=== PATIENT | female | born 1995 | race American Indian/Alaskan Native ===

== ENCOUNTER 2017-10-31 09:39 | Outpatient (CLI) | payer BC ==
--- NOTE | 2017-10-31 12:13 | Mammography Report ---
Bilateral mammogram and bilateral breast ultrasound: Palpable right breast mass. A marker is placed over the area of concern and routine mammography performed. There is a heterogeneously dense area of increased tissue density behind the right areola near the marker which is located above the nipple. No discrete mass identified. There does appear to be focal mild retraction of skin near the marker. The left breast is mostly fatty replaced however there is an elongated circumscribed nodule in the central breast measuring approximately 2.4 cm. Right breast ultrasound in the area of the palpable mass in the 10:00 location near the areola demonstrates an irregular shaped hypoechoic and shadowing mass measuring approximately 2 cm. Adjacent to this mass is a group of serpiginous appearing echolucent disease that may represent dilated ducts. Images of the right axilla demonstrates a 14 mm nonsuspicious appearing lymph node. In the left breast at 11:00 location approximately 7 cm from the nipple there is a circumscribed homogeneously hypoechoic nodule measuring 8.4 mm. No other findings. CAD used. Impressions: 1. Suspicious right breast mass. 2. Low suspicion right axillary lymph node. 3. 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 Recommendation: 1. Right breast biopsy with consideration of axillary node biopsy. 2. Consider left breast biopsy. 6 month mammographic followup also an option. BI-RADS CATEGORY: 5 = Malignant ACR BI-RADS MAMMOGRAPHIC CODES: 0 = Needs additional imaging evaluation; 1 = Negative; 2 = Benign; 3 = Probably benign; 4 = Suspicious; 5 = Malignant; 6 = Known biopsy-proven malignancy COMMENT: 1. Dense breast tissue, i.e., adenosis, fibrocystic changes, etc., may obscure an underlying neoplasm. 2. Approximately 10% of cancers are not detected with mammography. 3. A negative mammography report should not delay biopsy if a clinically suspicious mass is present.
== END 2017-10-31 09:40 | disposition home or self-care (01) ==
LOC: SPVWC 09:39
PROVIDERS: ATTEND Surgery
DX: N63.20 Unspecified lump in the left breast, unspecified quadrant (principal); N63.10 Unspecified lump in the right breast, unspecified quadrant; R92.8 Other abnormal and inconclusive findings on diagnostic imaging of breast
CPT/HCPCS: 77066

== ENCOUNTER 2017-11-16 08:36 | Outpatient (CLI) | payer BC ==
--- NOTE | 2017-11-16 11:13 | Ultrasound Report ---
VACUUM ASSISTED ULTRASOUND GUIDED NEEDLE CORE BIOPSY WITH CLIP PLACEMENT RIGHT BREAST: 11/16/17 08:36:00 CLINICAL: Right breast mass. COMPARISON :10/31/17 FINDINGS: The procedure was explained to the patient and informed consent was obtained. Ultrasound demonstrated marked a retro-areolar duct ectasia and a somewhat ill-defined retroareolar mass at 10 o'clock. A mass is more distinct in the antiradial plane and measures 1.0 x 1.0 cm in the antiradial plane and approximately 1.4 cm in the radial plane. The skin was prepped with Betadine and anesthetized with 1% lidocaine. Vacuum-assisted needle core biopsy was performed through a small dermatotomy using ultrasound guidance, 2% lidocaine with epinephrine for deep anesthesia and a 10-gauge Mammotome Elite biopsy probe. Multiple cores were obtained and placed in formalin. A hydro-heath clip was deployed within the lesion. Hemostasis was achieved with minimal pressure and a sterile dressing was applied. The patient tolerated the procedure well and there were no apparent complications. I scanned the right axilla and did not find a suspicious lymph node to biopsy. A two view mammogram demonstrated concordant clip placement at the margin of a retroareolar spiculated mass measuring approximately 1.9 cm. The patient left the department in good condition with instructions for wound care and follow up. IMPRESSION: uncomplicated vacuum-assisted ultrasound core biopsy and clip placement right breast.
--- NOTE | 2017-11-16 11:15 | Mammography Report ---
RIGHT DIGITAL DIAGNOSTIC MAMMOGRAM: 11/16/17 08:36:00 CLINICAL: For clip placement immediately status post ultrasound biopsy. COMPARISON:10/31/17 FINDINGS: A biopsy clip is now identified at the margin of a spiculated 1.9 cm retroareolar mass. IMPRESSION: Concordant clip placement status post ultrasound biopsy. BI-RADS CATEGORY: 5 - - Highly Suggestive of Malignancy Pathology pending.
== END 2017-11-16 08:37 | disposition home or self-care (01) ==
LOC: SPVWC 08:36
PROVIDERS: ATTEND Surgery
DX: N63.10 Unspecified lump in the right breast, unspecified quadrant (principal)
CPT/HCPCS: 88305; 88342

== ENCOUNTER 2018-06-30 02:39 | Emergency (ER) | payer BC ==
[2018-06-30 03:02] VITALS: BP 145/91
[2018-06-30] MEDS ORDERED: MOTRIN PO ONE (04:43)
--- NOTE | 2018-06-30 05:23 | XRay Report ---
FINAL REPORT PROCEDURE: XR ANKLE 2V RT TECHNIQUE: RIGHT ankle radiographs, AP and lateral views. HISTORY: right ankle pain COMPARISON: No prior studies are available for comparison. FINDINGS: Fracture (s) and/or Dislocation(s): None. Alignment: Normal. Joint space(s): Normal. Soft tissues: There is generalized soft tissue swelling. Bone mineralization: Normal. Foreign bodies: Normal. Calcaneal spurring: Normal. IMPRESSION: There is no acute bony abnormality. There is generalized soft tissue swelling..
--- NOTE | 2018-06-30 06:29 | Emergency Department Report ---
ED Lower Extremity HPI - General Chief Complaint: Extremity Injury, Lower Stated Complaint: ANKLE INJURY Time Seen by Provider: 06/30/18 06:23 Source: patient Mode of arrival: Ambulatory Limitations: No Limitations - History of Present Illness Initial Comments: 29-year-old obese female comes to the emergency room stating she twisted her right ankle about 1700 on Sunday evening. She reports that she was walking up an incline when her foot rolled inward. Patient denies falling. She denies any deformities reports that is painful to walk she reports that is throbbing with pain. She reports most of the pain is on the lateral aspect of the ankle. She has no past medical history currently takes no medications and has no known drug allergies. MD Complaint: ankle injury -: days(s) Time: 17:00 Injury: Ankle: Right (rolled ankle inward when she walked up an small incline) Type of Injury: inversion Place: street/outdoors Severity scale (0 -10): 10 Improves With: NSAID Context: walking Associated Symptoms: tingling, unable to bear weight - Related Data Previous Rx's Medication Instructions Recorded Last Taken Type Ibuprofen [Motrin 800 MG tab] 800 mg PO Q8HR PRN #30 tablet 06/30/18 Unknown Rx Allergies Allergy/AdvReac Type Severity Reaction Status Date / Time No Known Allergies Allergy Unverified 06/30/18 04:43 ED Review of Systems ROS: Stated complaint: ANKLE INJURY Other details as noted in HPI Comment: All other systems reviewed and negative Musculoskeletal: joint swelling (right ankle), arthralgia (right ankle) ED Past Medical Hx - Past Medical History Additional medical history: Right Breast Mass - Surgical History Past Surgical History?: No - Social History Smoking Status: Current Every Day Smoker Substance Use Type: None - Medications Home Medications: Home Medications Medication Instructions Recorded Confirmed Last Taken Type Ibuprofen [Motrin 800 MG tab] 800 mg PO Q8HR PRN #30 tablet 06/30/18 Unknown Rx ED Physical Exam - General Limitations: No Limitations General appearance: alert, in no apparent distress, obese - Head Head exam: Present: atraumatic, normocephalic - Eye Eye exam: Present: EOMI - ENT ENT exam: Present: mucous membranes moist - Respiratory Respiratory exam: Present: normal lung sounds bilaterally. Absent: respiratory distress - Cardiovascular Cardiovascular Exam: Present: regular rate, normal rhythm. Absent: systolic murmur, diastolic murmur, rubs, gallop - Expanded Lower Extremity Exam Right Knee exam: Present: normal inspection, full ROM. Absent: tenderness, swelling Ankle exam: Present: full ROM, tenderness (lateral malleolus), swelling ( lateral and medial malleolus). Absent: ecchymosis, deformity, crepidus, dislocation Foot/Toe exam: Present: normal inspection. Absent: tenderness, swelling Neuro vascular tendon exam: Present: no vascular compromise - Neurological Exam Neurological exam: Present: alert, oriented X3 - Psychiatric Psychiatric exam: Present: normal affect, normal mood - Skin Skin exam: Present: warm, dry, intact, normal color. Absent: rash ED Course Vital Signs 06/30/18 03:00 Temperature 99.2 F Pulse Rate 107 H Respiratory 18 Rate Blood Pressure 145/91 O2 Sat by Pulse 91 Oximetry ED Lower Extremity MDM - Radiology Data Radiology results: report reviewed FINAL REPORT PROCEDURE: XR ANKLE 2V RT TECHNIQUE: RIGHT ankle radiographs, AP and lateral views. HISTORY: right ankle pain COMPARISON: No prior studies are available for comparison. FINDINGS: Fracture (s) and/or Dislocation(s): None. Alignment: Normal. Joint space(s): Normal. Soft tissues: There is generalized soft tissue swelling. Bone mineralization: Normal. Foreign bodies: Normal. Calcaneal spurring: Normal. IMPRESSION: There is no acute bony abnormality. There is generalized soft tissue swelling.. Transcribed By: CO Dictated By: KAYLA SHAFFER MD Electronically Authenticated By: KAYLA SHAFFER MD Signed Date/Time: 06/30/18521 DD/ 1 TD/TT: 06/30/18521 - Medical Decision Making Patient has been evaluated by this provider in fast track. Patient was given ibuprofen for pain management in triage. X-ray of right ankle shows normal examination with mild swelling. Discussed patient I will place her in a [place] bandage with a ankle stirrup discharge her home with ibuprofen encouraged her to use ice for 20 minutes on per hour for the first 12 hours. Critical care attestation.: If time is entered above; I have spent that time in minutes in the direct care of this critically ill patient, excluding procedure time. ED Disposition Clinical Impression: Obesity, morbid, BMI 50 or higher Inversion sprain of right ankle Qualifiers: Encounter type: initial encounter Qualified Code(s): S93.401A - Sprain of unspecified ligament of right ankle, initial encounter Disposition: TO HOME OR SELFCARE Is pt being admited?: No Does the pt Need Aspirin: No Condition: Stable Additional Instructions: Please take pain medication as prescribed. Please apply ice to her ankle. Please use stirrup and wear [place] bandage. Please follow-up with your primary care provider if symptoms persist or gets worse. Prescriptions: Ibuprofen [Motrin 800 MG tab] 800 mg PO Q8HR PRN #30 tablet PRN Reason: Pain , Severe (7-10) Referrals: PRIMARY CARE, [Primary Care Provider] - 3-5 Days Forms: Work/School Release Form(ED)
== END 2018-06-30 07:09 | disposition home or self-care (01) ==
LOC: ED 02:39
DX: S93.401A Sprain of unspecified ligament of right ankle, initial encounter (principal); E66.01 Morbid (severe) obesity due to excess calories; Z68.43 Body mass index [BMI] 50.0-59.9, adult; F17.200 Nicotine dependence, unspecified, uncomplicated; X50.1XXA Overexertion from prolonged static or awkward postures, initial encounter; Y93.01 Activity, walking, marching and hiking; Y99.8 Other external cause status; Y92.488 Other paved roadways as the place of occurrence of the external cause
CPT/HCPCS: 29540; 99283

== ENCOUNTER 2019-12-23 01:24 | Emergency (ER) | payer SELFPAY ==
[2019-12-23] MEDS ORDERED: HYDROcodone/ACETAMINOPHEN 5-325 MG TAB ONE (01:59)
--- NOTE | 2019-12-23 03:36 | Emergency Department Report ---
ED General Adult HPI - General Chief complaint: Burn/Smoke Inhalation Stated complaint: RT HAND BURN Source: patient Mode of arrival: Ambulatory Limitations: No Limitations - History of Present Illness Initial comments: Patient is a 24-year-old -[place] female who presented to the ED with complaint of severe bilateral hand pain after a hot grease poured on her right hand, right thumb and left index finger causing multiple blistered burn injuries about 4 hours ago. Patient states that she was preparing to thrive food when the hot grease spilled on her hands. Patient states that she is up-to-date with the tetanus vaccination having received 1 about 1 year ago. In patient denies numbness and tingling or weakness of bilateral hands, dizziness, nausea, vomiting, syncope, chest pain, shortness of breath or fall. MD Complaint: Bilateral hand and finger burn injury -: Sudden, hour(s) (4) Location: upper extremity (Bilateral hands) Radiation: non-radiation Severity scale (0 -10): 9 Quality: burning, aching Consistency: constant Improves with: none Worsens with: none Associated Symptoms: denies other symptoms. denies: confusion, chest pain, cough, diaphoresis, fever/chills, headaches, loss of appetite, malaise, nausea/vomiting, shortness of breath, syncope, weakness, other Treatments Prior to Arrival: none - Related Data Previous Rx's Medication Instructions Recorded Last Taken Type Acetaminophen/Codeine [Tylenol 1 tab PO Q6H PRN #12 tab 12/23/19 Unknown Rx /Codeine # 3 tab] Ibuprofen [Motrin 800 MG tab] 800 mg PO Q8HR PRN #30 tablet 12/23/19 Unknown Rx Mafenide Acetate [Sulfamylon] 56.7 gm TP Q12H #1 tube 12/23/19 Unknown Rx Allergies Allergy/AdvReac Type Severity Reaction Status Date / Time No Known Allergies Allergy Unverified 06/30/18 04:43 ED Review of Systems ROS: Stated complaint: RT HAND BURN Other details as noted in HPI Constitutional: denies: chills, fever Eyes: denies: eye pain, eye discharge, vision change ENT: denies: ear pain, throat pain Respiratory: denies: cough, shortness of breath, wheezing Cardiovascular: denies: chest pain, palpitations Endocrine: no symptoms reported Gastrointestinal: denies: abdominal pain, nausea, diarrhea Genitourinary: denies: urgency, dysuria, discharge Musculoskeletal: other (Bilateral hand pains due to burn injuries on right hand, right thumb, and left index finger). denies: back pain, joint swelling, arthralgia Skin: other (Burn wounds on right hand, right thumb and left index finger). denies: rash, lesions Neurological: denies: headache, weakness, paresthesias Psychiatric: denies: anxiety, depression Hematological/Lymphatic: denies: easy bleeding, easy bruising ED Past Medical Hx - Past Medical History Previous Medical History?: Yes Hx Psychiatric Treatment: Yes (anxiety) Additional medical history: Right Breast Mass - Surgical History Past Surgical History?: Yes Hx Breast Surgery: Yes (biopsy to right breast) - Social History Smoking Status: Current Every Day Smoker Substance Use Type: Marijuana - Medications Home Medications: Home Medications Medication Instructions Recorded Confirmed Last Taken Type Acetaminophen/Codeine [Tylenol 1 tab PO Q6H PRN #12 tab 12/23/19 Unknown Rx /Codeine # 3 tab] Ibuprofen [Motrin 800 MG tab] 800 mg PO Q8HR PRN #30 tablet 12/23/19 Unknown Rx Mafenide Acetate [Sulfamylon] 56.7 gm TP Q12H #1 tube 12/23/19 Unknown Rx ED Physical Exam - General Limitations: No Limitations General appearance: alert, in no apparent distress - Head Head exam: Present: atraumatic, normocephalic - Eye Eye exam: Present: normal appearance, PERRL, EOMI Pupils: Present: normal accommodation - ENT ENT exam: Present: normal exam, normal orophraynx, mucous membranes moist, TM's normal bilaterally, normal external ear exam - Neck Neck exam: Present: normal inspection, full ROM - Respiratory Respiratory exam: Present: normal lung sounds bilaterally. Absent: respiratory distress, wheezes, rales, rhonchi, chest wall tenderness, accessory muscle use, decreased breath sounds - Cardiovascular Cardiovascular Exam: Present: regular rate, normal rhythm, normal heart sounds. Absent: systolic murmur, diastolic murmur, rubs, gallop - GI/Abdominal GI/Abdominal exam: Present: soft, normal bowel sounds. Absent: tenderness, guarding, hyperactive bowel sounds, hypoactive bowel sounds, organomegaly - Extremities Exam Extremities exam: Present: normal inspection, full ROM, tenderness, normal capillary refill, other (Bilateral hand tenderness due to second-degree burn on right hand, right thumb and left index finger). Absent: pedal edema, joint swelling, calf tenderness - Back Exam Back exam: Present: normal inspection, full ROM. Absent: tenderness, CVA tenderness (R), CVA tenderness (L), muscle spasm, paraspinal tenderness - Neurological Exam Neurological exam: Present: alert, oriented X3, CN II-XII intact, normal gait, reflexes normal - Psychiatric Psychiatric exam: Present: normal affect, normal mood - Skin Skin exam: Present: warm, dry, intact, normal color, other (Second-degree burn wounds on right thumb, right hand and left thumb). Absent: rash ED Course Vital Signs 12/23/19 01:27 Temperature 97.2 F L Pulse Rate 90 Respiratory 18 Rate Blood Pressure 182/102 O2 Sat by Pulse 100 Oximetry ED Medical Decision Making - Medical Decision Making This is a 24-year-old -[place] female who presented to the ED with painful burn injuries on the right hand and fingers as well as mild burn wound on the left index finger after a hot grease spilled onto her right hand when she was trying to espitia some food. Patient stated that she is up-to-date with her tetanus vaccination. In the ED, patient is alert and oriented x3 and is not in distress. Patient was treated for pain in the ED and on reevaluation, patient's pain is well controlled with medications. The burn wounds were cleaned thoroughly and Silvadene cream applied topically to the wounds. The wounds were then appropriately dressed and the patient was discharged home on pain medications and more prescription for Silvadene cream. Patient was advised to follow-up with the burn center in 3 to 5 days for reevaluation or return to the ED immediately if symptoms get worse. - Differential Diagnosis Burn injury; Secind degree burn; blisters of hands Critical care attestation.: If time is entered above; I have spent that time in minutes in the direct care of this critically ill patient, excluding procedure time. ED Disposition Clinical Impression: Second degree burn of right hand and fingers Qualifiers: Encounter type: initial encounter Qualified Code(s): T23.201A - Burn of second degree of right hand, unspecified site, initial encounter; T23.231A - Burn of second degree of multiple right fingers (nail), not including thumb, initial encounter Second degree burn of left hand including fingers Qualifiers: Encounter type: initial encounter Qualified Code(s): T23.202A - Burn of second degree of left hand, unspecified site, initial encounter; T23.232A - Burn of second degree of multiple left fingers (nail), not including thumb, initial encounter Disposition: TO HOME OR SELFCARE Is pt being admited?: No Does the pt Need Aspirin: No Condition: Stable Instructions: Partial Thickness Burn (ED), Acute Wound Care (ED), Superficial Burn (ED) Additional Instructions: Take pain medication as needed with food, drink plenty of fluids and follow-up with your primary care physician in 5 to 7 days for reevaluation. Return to the ED immediately if symptoms get worse. Prescriptions: Ibuprofen [Motrin 800 MG tab] 800 mg PO Q8HR PRN #30 tablet PRN Reason: Pain , Severe (7-10) Mafenide Acetate [Sulfamylon] 56.7 gm TP Q12H #1 tube Acetaminophen/Codeine [Tylenol /Codeine # 3 tab] 1 tab PO Q6H PRN #12 tab PRN Reason: Pain , Severe (7-10) Referrals: [facility] [Outside] - 3-5 Days Forms: Work/School Release Form(ED) Time of Disposition: 03:31 Print Language: BERMUDIAN
[2019-12-23 03:45] VITALS: BP 123/86
== END 2019-12-23 03:45 | disposition home or self-care (01) ==
LOC: ED 01:24
DX: T23.201A Burn of second degree of right hand, unspecified site, initial encounter (principal); T23.202A Burn of second degree of left hand, unspecified site, initial encounter; F41.9 Anxiety disorder, unspecified; F17.200 Nicotine dependence, unspecified, uncomplicated; Z79.899 Other long term (current) drug therapy; Z98.890 Other specified postprocedural states; X08.8XXA Exposure to other specified smoke, fire and flames, initial encounter; Y93.G3 Activity, cooking and baking; Y92.89 Other specified places as the place of occurrence of the external cause; Y99.8 Other external cause status
CPT/HCPCS: 99282

== ENCOUNTER 2021-11-27 09:34 | Emergency (ER) | payer SELFPAY ==
[2021-11-27 09:49] VITALS: BP 123/93
--- NOTE | 2021-11-27 10:27 | Emergency Department Report ---
ED General Adult HPI - General Chief complaint: Abdominal Pain Stated complaint: VOMITTING/SORE THORAT Time Seen by Provider: 11/27/21 09:55 Source: patient Mode of arrival: Ambulatory Limitations: No Limitations - History of Present Illness Initial comments: 26 yo AA F pt presents with complaints of nausea, vomiting, and and lower abdominal pain x 3 days. States vomiting only occurs in the morning. She also reports a fever of 102 orally around 7 pm yesterday. Took tylenol and fever resolved. LMP was 10/02/21. She denies any urinary symptoms, vaginal bleeding, or dyspareunia. States she currently has a yeast infection and has not taken any OTC meds. Pt denies any PMHx. No prior pregnancies. Not currently following with PCP. -: Sudden Severity scale (0 -10): 7 - Related Data Previous Rx's Medication Instructions Recorded Last Taken Type Acetaminophen/Codeine [Tylenol 1 tab PO Q6H PRN #12 tab 12/23/19 Unknown Rx /Codeine # 3 tab] Ibuprofen [Motrin 800 MG tab] 800 mg PO Q8HR PRN #30 tablet 12/23/19 Unknown Rx Mafenide Acetate [Sulfamylon] 56.7 gm TP Q12H #1 tube 12/23/19 Unknown Rx Allergies Allergy/AdvReac Type Severity Reaction Status Date / Time christopher Allergy Itching Verified 11/27/21 09:43 ED Review of Systems ROS: Stated complaint: VOMITTING/SORE THORAT Other details as noted in HPI Constitutional: denies: chills, fever, malaise ENT: denies: throat pain Respiratory: denies: cough Gastrointestinal: abdominal pain, nausea, vomiting. denies: diarrhea, constipation Genitourinary: discharge (chunkywhite). denies: urgency, dysuria, frequency, hematuria, abnormal menses, dyspareunia Musculoskeletal: denies: back pain Skin: denies: change in color Neurological: denies: headache Hematological/Lymphatic: denies: easy bleeding ED Past Medical Hx - Past Medical History Previous Medical History?: Yes Hx Psychiatric Treatment: Yes (anxiety) Additional medical history: Right Breast Mass - Surgical History Past Surgical History?: Yes Hx Breast Surgery: Yes (biopsy to right breast) - Social History Smoking Status: Current Every Day Smoker Substance Use Type: Marijuana - Medications Home Medications: Home Medications Medication Instructions Recorded Confirmed Last Taken Type Acetaminophen/Codeine [Tylenol 1 tab PO Q6H PRN #12 tab 12/23/19 Unknown Rx /Codeine # 3 tab] Ibuprofen [Motrin 800 MG tab] 800 mg PO Q8HR PRN #30 tablet 12/23/19 Unknown Rx Mafenide Acetate [Sulfamylon] 56.7 gm TP Q12H #1 tube 12/23/19 Unknown Rx ED Physical Exam - General Limitations: No Limitations General appearance: alert, in no apparent distress - Head Head exam: Present: atraumatic, normocephalic - Eye Eye exam: Present: normal appearance - Neck Neck exam: Present: normal inspection - Respiratory Respiratory exam: Present: normal lung sounds bilaterally. Absent: respiratory distress - Cardiovascular Cardiovascular Exam: Present: regular rate, normal rhythm - GI/Abdominal GI/Abdominal exam: Present: soft, tenderness (L suprapubic ). Absent: distended, guarding, rebound, rigid - Neurological Exam Neurological exam: Present: alert, oriented X3 - Psychiatric Psychiatric exam: Present: normal affect, normal mood - Skin Skin exam: Present: warm, dry, intact, normal color. Absent: rash ED Course Vital Signs 11/27/21 09:43 Temperature 98.3 F Pulse Rate 101 H Respiratory 18 Rate Blood Pressure 123/93 [Right] O2 Sat by Pulse 100 Oximetry ED Medical Decision Making - Lab Data Result diagrams: 11/27/21 10:20 11/27/21 10:20 Lab Results 11/27/21 11/27/21 11/27/21 Range/Units 10:20 10:20 10:20 WBC 5.3 (4.5-11.0) K/mm3 RBC 5.05 H (3.65-5.03) M/mm3 Hgb 13.0 (10.1-14.3) gm/dl Hct 40.7 (30.3-42.9) % MCV 81 (79-97) fl MCH 26 L (28-32) pg MCHC 32 (30-34) % RDW 15.7 H (13.2-15.2) % Plt Count 240 (140-440) K/mm3 Lymph % (Auto) 22.0 (13.4-35.0) % [place] % (Auto) 11.4 H (0.0-7.3) % Eos % (Auto) 0.8 (0.0-4.3) % Baso % (Auto) 0.3 (0.0-1.8) % Lymph # (Auto) 1.2 (1.2-5.4) K/mm3 [place] # (Auto) 0.6 (0.0-0.8) K/mm3 Eos # (Auto) 0.0 (0.0-0.4) K/mm3 Baso # (Auto) 0.0 (0.0-0.1) K/mm3 Seg Neutrophils % 65.5 (40.0-70.0) % Seg Neutrophils # 3.5 (1.8-7.7) K/mm3 Sodium 136 L (137-145) mmol/L Potassium 3.8 (3.6-5.0) mmol/L Chloride 101.7 (98-107) mmol/L Carbon Dioxide 22 (22-30) mmol/L Anion Gap 16 mmol/L BUN 9 (7-17) mg/dL Creatinine 0.7 (0.6-1.2) mg/dL Estimated GFR > 60 ml/min BUN/Creatinine Ratio 13 % Glucose 134 H (65-100) mg/dL Calcium 8.8 (8.4-10.2) mg/dL Total Bilirubin 0.30 (0.1-1.2) mg/dL AST 11 (5-40) units/L ALT 14 (7-56) units/L Alkaline Phosphatase 79 (35-129) units/L Total Protein 7.3 (6.3-8.2) g/dL Albumin 3.7 L (3.9-5) g/dL Albumin/Globulin Ratio 1.0 % Lipase 11 L (13-60) units/L HCG, Qual Negative (Negative) Urine Color (Yellow) Urine Turbidity (Clear) Urine pH (5.0-7.0) Ur Specific [place] (1.003-1.030) Urine Protein (Negative) mg/dL Urine Glucose (UA) (Negative) mg/dL Urine Ketones (Negative) mg/dL Urine Blood (Negative) Urine Nitrite (Negative) Urine Bilirubin (Negative) Urine Urobilinogen (<2.0) mg/dL Ur Leukocyte Esterase (Negative) Urine WBC (Auto) (0.0-6.0) /HPF Urine RBC (Auto) (0.0-6.0) /HPF U Epithel Cells (Auto) (0-13.0) /HPF Urine Mucus /HPF 11/27/21 Range/Units Unknown WBC (4.5-11.0) K/mm3 RBC (3.65-5.03) M/mm3 Hgb (10.1-14.3) gm/dl Hct (30.3-42.9) % MCV (79-97) fl MCH (28-32) pg MCHC (30-34) % RDW (13.2-15.2) % Plt Count (140-440) K/mm3 Lymph % (Auto) (13.4-35.0) % [place] % (Auto) (0.0-7.3) % Eos % (Auto) (0.0-4.3) % Baso % (Auto) (0.0-1.8) % Lymph # (Auto) (1.2-5.4) K/mm3 [place] # (Auto) (0.0-0.8) K/mm3 Eos # (Auto) (0.0-0.4) K/mm3 Baso # (Auto) (0.0-0.1) K/mm3 Seg Neutrophils % (40.0-70.0) % Seg Neutrophils # (1.8-7.7) K/mm3 Sodium (137-145) mmol/L Potassium (3.6-5.0) mmol/L Chloride (98-107) mmol/L Carbon Dioxide (22-30) mmol/L Anion Gap mmol/L BUN (7-17) mg/dL Creatinine (0.6-1.2) mg/dL Estimated GFR ml/min BUN/Creatinine Ratio % Glucose (65-100) mg/dL Calcium (8.4-10.2) mg/dL Total Bilirubin (0.1-1.2) mg/dL AST (5-40) units/L ALT (7-56) units/L Alkaline Phosphatase (35-129) units/L Total Protein (6.3-8.2) g/dL Albumin (3.9-5) g/dL Albumin/Globulin Ratio % Lipase (13-60) units/L HCG, Qual (Negative) Urine Color Yellow (Yellow) Urine Turbidity Slightly-cloudy (Clear) Urine pH 5.0 (5.0-7.0) Ur Specific [place] 1.026 (1.003-1.030) Urine Protein 30 mg/dl (Negative) mg/dL Urine Glucose (UA) Neg (Negative) mg/dL Urine Ketones Neg (Negative) mg/dL Urine Blood Lg (Negative) Urine Nitrite Neg (Negative) Urine Bilirubin Neg (Negative) Urine Urobilinogen < 2.0 (<2.0) mg/dL Ur Leukocyte Esterase Mod (Negative) Urine WBC (Auto) 21.0 H (0.0-6.0) /HPF Urine RBC (Auto) 60.0 (0.0-6.0) /HPF U Epithel Cells (Auto) 6.0 (0-13.0) /HPF Urine Mucus 2+ /HPF - Medical Decision Making 26 yo AA F pt presents with complaints of nausea, vomiting, and and lower abdominal pain x 3 days. States vomiting only occurs in the morning. She also reports a fever of 102 orally around 7 pm yesterday. Took tylenol and fever resolved. LMP was 10/02/21. She denies any urinary symptoms, vaginal bleeding, or dyspareunia. States she currently has a yeast infection and has not taken any OTC meds. Pt denies any PMHx. No prior pregnancies. Not currently following [facility] PCP. Patient eloped prior to imaging and disposition Critical care attestation.: If time is entered above; I have spent that time in minutes in the direct care of this critically ill patient, excluding procedure time. ED Disposition Clinical Impression: Eloped from emergency department, Abdominal pain Disposition: 07 LEFT AWOL/ELOPED Is pt being admited?: No Condition: Stable Instructions: Abdominal Pain (ED)
[2021-11-27 11:09] LABS: Basophils % (Auto) 0.3 % (0.0-1.8); Eosinophils % (Auto) 0.8 % (0.0-4.3); Hematocrit 40.7 % (30.3-42.9); Lymphocytes # (Auto) 1.2 K/mm3 (1.2-5.4); Mean Corpuscular HGB Conc 32 % (30-34); Mean Corpuscular Volume 81 fl (79-97); Monocytes # (Auto) 0.6 K/mm3 (0.0-0.8); Monocytes % (Auto) 11.4 % (0.0-7.3); Platelet Count 240 K/mm3 (140-440); Red Blood Count 5.05 M/mm3 (3.65-5.03); Red Cell Distribution Width 15.7 % (13.2-15.2)
[2021-11-27 11:27] LABS: Bilirubin,Urine NEG (Negative); Blood,Urine LG (Negative); Color,Urine Yellow (Yellow); Mucus,Urine 2+ /HPF; Urobilinogen,Urine < 2.0 mg/dL (<2.0)
[2021-11-27 11:35] LABS: Alanine Aminotransferase 14 units/L (7-56); Albumin 3.7 g/dL (3.9-5); Blood Urea Nitrogen 9 mg/dL (7-17); Calcium 8.8 mg/dL (8.4-10.2); Hemolysis Index 8
[2021-11-27 11:37] LABS: BUN/Creatinine Ratio 13
== END 2021-11-27 14:36 | disposition left against medical advice (07) ==
LOC: ED 09:34
DX: R10.30 Lower abdominal pain, unspecified (principal); R11.2 Nausea with vomiting, unspecified; F41.9 Anxiety disorder, unspecified; F17.200 Nicotine dependence, unspecified, uncomplicated; F12.90 Cannabis use, unspecified, uncomplicated; Z79.899 Other long term (current) drug therapy; Z91.018 Allergy to other foods
CPT/HCPCS: 36415; 80053; 81001; 83690; 84703; 85025; 87086; 99283